=== PATIENT | female | born 1990 | race Two or more races ===

== ENCOUNTER 2018-03-14 01:12 | Emergency (ER) | payer MEDICAID ==
[~2018-03-14] VITALS: Ht 160 cm; Wt 70.0 kg
[2018-03-14] MEDS ORDERED: IBUPROFEN 600 MG TABLET PO ONE (02:00)
[2018-03-14 03:19] VITALS: BP 108/61
== END 2018-03-14 03:45 | disposition home or self-care (01) ==
LOC: EMS 01:13
DX: R07.89 Other chest pain (principal)
CPT/HCPCS: 93005; 99284